=== PATIENT | female | born 1950 | race Caucasian/White ===

== ENCOUNTER → 2017-03-27 08:42 | Outpatient (CLI) | payer MEDICARE, SELFPAY ==
--- NOTE | 2017-03-27 08:49 | HPBI_ITS ---
MAMMOGRAPHY - BILATERAL SCREENING REASON FOR EXAM: Female, 67 years old. Routine annual screening examination. PERTINENT HISTORY: Remote left excisional breast biopsy. History of ovarian and uterine carcinoma. TECHNIQUE: Digital bilateral breast maria guadalupe (3D mammographic acquisition) in the CC and MLO projections. 2-D mediolateral oblique (MLO) and craniocaudad (CC) views of both breasts were obtained. CAD: Full Field Digital Mammography with Computer Added Detection was performed. COMPARISON: Comparison is made with prior study dated October 31, 2015 and October 27, 2014. FINDINGS: Breast Composition: There are scattered areas of fibroglandular density. Once again, there is asymmetry of breast tissue with more breast tissue is seen in the upper outer quadrant of the right breast. This is unchanged. A tissue clip marker is seen in the asymmetrical density of the right breast. No other significant abnormalities are identified. There has been no significant change since the prior study. HPBI/SCREENING MAMM (CAD), BILAT IMPRESSION: Stable bilateral screening mammogram. Yearly follow-up mammogram recommended. (A) ASSESSMENT CATEGORY: BIRADS Category 2: Benign. A letter regarding these results will be sent to the patient by the facility within 30 days. Approximately 10% of breast cancers are not detected by mammography. A normal mammogram should not delay biopsy of a clinically suspicious abnormality. [id number] Electronically Signed: Bruce Solis MD at 10:47 EST Tel [phone], Service support ,
== END ==
PROVIDERS: Family Provider Family Medicine; PCP Family Medicine; Visit Provider Family Medicine
DX: Z12.31 Encounter for screening mammogram for malignant neoplasm of breast (principal)
CPT/HCPCS: 77063; 77067

== ENCOUNTER → 2019-10-26 08:09 | Outpatient (CLI) | payer MEDICARE, SELFPAY ==
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
--- NOTE | 2019-10-26 08:45 | BRBX_PTH ---
PATIENT: ANITA GOLDBERG LOC: [facility] U#:[id number] AGE/SX: 75/F ROOM: RE10/26/[address]: Dr. Araceli Díaz MD : 1950 BED: DIS: SPEC #: [id number] RECD: 10/26/19 10:32 STATUS: GRAYSON SANCHO #: [id number] BRICE: 10/26/19 08:[address]: Araceli Díaz DEPT: SURGICAL PATHOLOGY RECD BY: Jam Arreola ENTERED: 10/26/19 10:58 SP TYPE: BREAST BX OTHR DR: Dr. Dawn Cartwright, DO Tissues: Right breast, NOS Procedures: Surgery Specimen Level IV HEADER OPERATION: Right stereotactic biopsy PRE-OP DIAGNOSIS: Right breast upper outer quadrant microcalcifications TISSUE SUBMITTED: Right breast core tissue ISCHEMIC TIME: 1 minute FIXATION TIME: 10.5 hours MICROSCOPIC DIAGNOSIS Right breast upper outer quadrant, stereotactic needle core biopsy: Nonproliferative fibrocystic change with associated microcalcifications. Focal involutional change with associated microcalcifications. No evidence of malignancy. AM:rachel 10/27/19 MICROSCOPIC DESCRIPTION Slides are reviewed. GROSS DESCRIPTION Received in fixative is one container labeled with the patient name and designated right breast. The specimen consists of multiple elongated fragments of rowell-yellow fibroadipose tissue that in aggregate measure 5 x 3 x 0.3 cm. The entire specimen is submitted in two cassettes. / SJ:rachel 10/26/19 TC:5 CPT: 59930
--- NOTE | 2019-10-26 11:22 | OP.PCM_ITS ---
Report of Operation Date of Procedure: 10/26/19 Pre-Operative Diagnosis: abnormal calcifications on right breast mammograms Post-Operative Diagnosis: same Surgery/Procedure Performed:: right stereotactic breast biopsy Description of Surgical Findings:: abnormal calcifications on right breast mammograms Type of Anesthesia:: Local - 1% xylocaine Specimen's removed: right breast tissue Estimated Blood Loss (mL): minimal Fluids Replaced: none Description of Procedure: After informed consent was given, the patient was brought into the Breast Biopsy suite. Appropriate time out protocol was followed. The patient was placed in the prone position on the stereotactic biopsy table. The patient?s right breast was then placed in the opening at the head of the biopsy table. A service order dispatcher compression mammogram was then obtained in the CC view. The suspicious radiological lesion was thus identified. Stereo pictures of the lesion were then taken for XYZ coordinates. The Mammotome biopsy stylus was then positioned where it would be entering into the patient?s breast. The skin at this site was then cleansed with a surgical skin preparation. The skin and subcutaneous tissues at this site were then infiltrated with 1% xylocaine. A small skin incision was made with an 11 blade scalpel. The biopsy stylus was then pos itioned into the patient?s breast at the proper coordinates of depth. Using the Mammotome vacuum-assist device, several core samples of breast tissue were obtained. A specimen mammogram was the obtained. It revealed that the abnormal calcifications were within the specimen. I reviewed this personally and concluded that the tissue sampling was adequate. A hemostatic marker clip was then placed into the biopsy cavity and a service order dispatcher film revealed that it was properly deployed. The patient was then placed in the supine position and pressure was applied to the breast until no active bleeding was noted. Steristrips were applied to reapproximate the skin. A unilateral mammogram in the CC and MLO view were then taken which revealed that the marker clip was in the same area as the previous suspicious lesion. The patient tolerated the procedure well and was discharged from the Breast Biopsy suite in good condition. - Complications none noted
== END ==
PROVIDERS: PCP Family Medicine; Referring Provider Surgery; Visit Provider Surgery
DX: N60.11 Diffuse cystic mastopathy of right breast (principal); R92.1 Mammographic calcification found on diagnostic imaging of breast; I10 Essential (primary) hypertension; E11.9 Type 2 diabetes mellitus without complications; K21.9 Gastro-esophageal reflux disease without esophagitis; Z79.4 Long term (current) use of insulin; Z79.899 Other long term (current) drug therapy; Z87.891 Personal history of nicotine dependence
CPT/HCPCS: 19081; 88305; J7050

== ENCOUNTER → 2023-05-02 | Outpatient (CLI) | payer MEDICARE, SELFPAY ==
--- NOTE | 2023-05-02 13:12 | ECHOD_ITS ---
Reason For Study: Abnormal EKG Procedure This was a 2D Doppler, Color Flow transthoracic echocardiogram. The study was technically difficult. Exam performed in department. Left Ventricle Normal LV size. Left ventricular systolic function is normal. Stage 1 diastolic dysfunction. No regional wall motion abnormalities noted. Right Ventricle Normal RV size. Normal systolic function. Atria The left atrium is mildly enlarged. Normal right atrium. Mitral Valve Normal mitral valve. Tricuspid Valve Normal tricuspid valve. Aortic Valve Normal aortic valve. Pulmonic Valve Normal pulmonic valve. Great Vessels Normal aortic root. The pulmonary artery is normal size. Normal inferior vena cava. Pericardium/Pleural No pericardial effusion. MMode/2D Measurements & Calculations LVIDd: 5.0 cm IVSd: 0.89 cm Ao root diam: 3.0 cm LVIDs: 3.6 cm LVPWd: 1.0 cm LA dimension: 4.1 cm RVDd: 3.3 cm FS: 27.7 % LAV(MOD-bp): 66.8 ml LA A4 area: 21.4 cm2 RA A4 area: 14.3 cm2 LAV(MOD-bp) Indexed: 31.5 ml/m2 LAV(MOD-sp2): 74.2 ml LAV(MOD-sp4): 59.5 ml TAPSE: 1.8 cm Time Measurements MV dec time: 0.22 sec Doppler Measurements & Calculations MV E max tiburcio: 83.6 cm/sec Lat Peak E' Tiburcio: 8.5 cm/sec Med Peak E' Tiburcio: 5.4 cm/sec MV A max tiburcio: 104.6 cm/sec E/E' lat: 9.9 E/E' med: 15.4 MV E/A: 0.80 MV V2 max: 114.0 cm/sec Ao V2 max: 112.7 cm/sec MV max P.2 mmHg MV dec slope: 418.8 cm/sec2 Ao max P.2 mmHg MV V2 mean: 72.3 cm/sec Ao V2 mean: 95.8 cm/sec MV mean P.4 mmHg Ao mean P.1 mmHg MV V2 VTI: 30.2 cm Ao V2 VTI: 32.4 cm AV (velocity ratio): 0.69 LV V1 max: 93.0 cm/sec PA V2 max: 87.9 cm/sec LV V1 max P.5 mmHg LV V1 mean P.2 mmHg LV V1 mean: 70.4 cm/sec LV V1 VTI: 22.5 cm ECHO/Echo Complete Interpretation Summary Normal LV size. Left ventricular systolic function is normal. Stage 1 diastolic dysfunction. The left atrium is mildly enlarged. Ordering Physician: Wero Crisostomo Referring Physician: Wero Crisostomo Performed By: Dick Baca RCS
== END | disposition home or self-care (01) ==
PROVIDERS: PCP Family Medicine; Referring Provider Internal Medicine Cardiovascular Disease; Visit Provider Internal Medicine Cardiovascular Disease
DX: R94.31 Abnormal electrocardiogram [ECG] [EKG] (principal); J43.9 Emphysema, unspecified; I49.3 Ventricular premature depolarization; R00.1 Bradycardia, unspecified; I10 Essential (primary) hypertension; E78.5 Hyperlipidemia, unspecified; Z82.49 Family history of ischemic heart disease and other diseases of the circulatory system
CPT/HCPCS: 93306